=== PATIENT | male | born 1945 | race African-American/Black ===

== ENCOUNTER 2017-05-29 13:08 | Inpatient (IN) | payer MEDICARE, MEDICAID ==
[~2017-05-29] VITALS: Ht 172.7 cm; Wt 85.7 kg
--- NOTE | 2017-05-29 13:10 | NUR ---
AAOX3, BIB PRIVATE EMT FROM [facility] FOR MEDICAL CLEARANCE PRIOR TO GPS ADMISSION FOR REFUSING CARE/COMBATIVE OR AGRESSIVE TOWARDS STAFF. RR IS EVEN AND UNLABORED WITH NAD NOTED. SKIN IS WARM AND DRY. AWAITING MD FOR EVAL.
[2017-05-29] MEDS ORDERED: RISP0.253 PO ×2 (13:32)
[2017-05-29] MEDS ORDERED: DONE5TAB34 PO (13:32)
[2017-05-29] MEDS ORDERED: DORZ10DR8 EACHEYE (13:32)
[2017-05-29] MEDS ORDERED: POLY15DR40 LEFTEYE (13:32)
[2017-05-29] MEDS ORDERED: BRIM5DRO11 LEFTEYE (13:32)
[2017-05-29] MEDS ORDERED: ACET-868 PO (13:32)
[2017-05-29] MEDS ORDERED: LATA2.5D7 EACHEYE (13:32)
--- NOTE | 2017-05-29 13:41 | NUR ---
URINE OBTAINED SENT TO THE LAB.
[2017-05-29 13:47] LABS: APPEARANCE,URINE Clear (CLEAR); BILIRUBIN,URINE Negative (NEGATIVE); BLOOD, URINE Small Ery/uL (NEGATIVE); COLOR,URINE Yellow (YELLOW); KETONES,URINE Negative (NEGATIVE); LEUKOCYTE ESTERASE ,URINE Trace (NEGATIVE); NITRITE, URINE Negative (NEGATIVE); PH,URINE 6.5 (5.0-8.0); PROTEIN,URINE Negative (NEGATIVE); UGLUCOSE Negative (NEGATIVE)
[2017-05-29 13:52] LABS: BASOPHILS % (AUTO) 0.5 % (0.0-2.0); EOSINOPHILS # (AUTO) 0.1 /CMM (0.0-0.7); EOSINOPHILS % (AUTO) 1.9 % (0.0-6.0); HEMATOCRIT 43 % (39-51); HEMOGLOBIN 14.3 g/dL (13.5-17.5); LYMPHOCYTES # (AUTO) 1.4 /CMM (0.8-4.8); LYMPHOCYTES % (AUTO) 18.3 % (20.0-44.0); MEAN CORPUSCULAR HEMOGLOBIN 31 PG (26.0-33.0); MEAN CORPUSCULAR HGB CONC 34 g/dl (31.0-36.0); MEAN CORPUSCULAR VOLUME 92 fL (80-96); MONOCYTES # (AUTO) 0.5 /CMM (0.1-1.30); MONOCYTES % (AUTO) 6.4 % (2.0-12.0); NEUTROPHILS # (AUTO) 5.7 /CMM (1.8-8.9); NEUTROPHILS % (AUTO) 72.9 % (43.0-81.0); PLATELET COUNT (AUTO) 267 /CMM (150-450); RDW COEFFICIENT OF VARIATION 13.4 (11.5-15.0); RED BLOOD CELL COUNT(AUTO) 4.61 MIL/uL (4.5-6.0); WHITE BLOOD COUNT (AUTO) 7.7 K/uL (4.3-11.0)
[2017-05-29 13:55] LABS: BACTERIA,URINE Rare /HPF (None Seen); RBC,URINE 0-2 /HPF (0-2); SQUAMOUS EPITHELIAL CELL,UR Rare /HPF (None Seen); WBC,URINE 0-2 /HPF (0-3)
[2017-05-29 13:59] LABS: CALCIUM, SERUM 8.8 mg/dL (8.5-10.1); CARBON DIOXIDE 29 mmol/L (21-32); CHLORIDE 102 mmol/L (98-107); GLUCOSE 138 mg/dL (74-106); SODIUM SERUM 136 mmol/L (136-145); UREA NITROGEN, BLOOD 10 mg/dL (7-18)
[2017-05-29 14:05] LABS: ALANINE AMINOTRANSFERASE 38 U/L (12-78); ALBUMIN 3.5 g/dL (3.4-5.0); ALKALINE PHOSPHATASE 147 U/L (46-116); ASPARTATE AMINOTRANSFERASE 26 U/L (15-37); BILIRUBIN,DIRECT 0.1 mg/dL (0.0-0.2); BILIRUBIN,TOTAL 0.3 mg/dL (0.2-1.0)
--- NOTE | 2017-05-29 14:23 | NUR ---
REPORT GIVEN TO LINDY DELGADO FOR DONALD GPS 211
[2017-05-29] MEDS ORDERED: ACETAMINOPHEN 325 MG TABLET PO PRN ×2 (15:00→16:00)
[2017-05-29 16:00] VITALS: BP 130/60
[2017-05-29] MEDS ORDERED: LORAZEPAM 0.5 MG TABLET PO PRN (16:00)
[2017-05-29] MEDS ORDERED: MAGNESIUM HYDROXIDE 30 ML UDC PO PRN (16:00)
[2017-05-29] MEDS ORDERED: MAG HYDROX/AL HYDROX/SIMETH 30 ML UDC PO PRN (16:00)
[2017-05-29] MEDS: POLYVINYL ALCOHOL 15 ML BOTTLE LEFTEYE SCH (17:41)
--- NOTE | 2017-05-29 18:25 | NUR ---
GPS RN ADMITTING NOTES: ADMITTED PATIENT FROM THE ED AT 1600. PATIENT IS ON 51/50 HOLD FOR DTO AND GD. PATIENT'S BELONGINGS CHECKED FOR CONTRABAND. ON [id number] ASSESSMENT PATIENT IS ALERT AND ORIENTED TO SELF, YEAR, AND PLACE, COOPERATIVE WITH ASSESSMENT, HOWEVER, UNABLE TO SIGN A PAPERWORK. PATIENT HAS A HX OF GLAUCOMA AND CATARACT(R EYE BLINDNESS, AND LEFT EYE POOR VISION). ADMITTING ORDERS RECEIVED FROM DR. LOPEZ. CONTINUE TO MONITOR THE PATIENT.
[2017-05-29] MEDS: DORZOLAMIDE OPTH 2% 10 ML BOTTLE LEFTEYE SCH (18:48)
[2017-05-29] MEDS: BRIMONIDINE TARTRATE OPHT SOLN 5 ML BOTTLE LEFTEYE SCH (18:48)
--- NOTE | 2017-05-29 19:29 | NUR ---
GPS/RN NOTE: PATIENT AWAKE, LEFT EYE CAN SEE, RIGHT EYE IS BLIND. HAS 1:1 SITTER FOR SAFETY. NO ACUTE DISTRESS NOTED.
[2017-05-29 20:00] VITALS: BP 142/86
[2017-05-29] MEDS: DONEPEZIL 5 MG TABLET PO SCH (21:28)
[2017-05-29] MEDS: LATANOPROST EYE DROP 0.005% 2.5 ML BOTTLE LEFTEYE SCH (21:30)
[2017-05-30] MEDS: BRIMONIDINE TARTRATE OPHT SOLN 5 ML BOTTLE LEFTEYE SCH ×3 (02:30→16:38)
--- NOTE | 2017-05-30 03:39 | NUR ---
GPS/RN NOTE: PATIENT ASLEEP, EYE DROP NOT ADMINISTERED.
[2017-05-30 06:46] LABS: ALANINE AMINOTRANSFERASE 37 U/L (12-78); ALBUMIN 3.5 g/dL (3.4-5.0); ALKALINE PHOSPHATASE 150 U/L (46-116); ASPARTATE AMINOTRANSFERASE 23 U/L (15-37); BILIRUBIN,TOTAL 0.4 mg/dL (0.2-1.0); CALCIUM, SERUM 8.9 mg/dL (8.5-10.1); CARBON DIOXIDE 26 mmol/L (21-32); CHLORIDE 106 mmol/L (98-107); CREATININE 0.8 mg/dL (0.6-1.3); GLUCOSE 90 mg/dL (74-106); POTASSIUM 4.2 mmol/L (3.5-5.1); SODIUM SERUM 140 mmol/L (136-145); TOTAL PROTEIN, SERUM 7.9 g/dL (6.4-8.2); UREA NITROGEN, BLOOD 9 mg/dL (7-18)
[2017-05-30 06:55] LABS: CHOLESTEROL 189 mg/dL (<200); HDL CHOLESTEROL 39 mg/dL (40-60); LDL 137 mg/dL (0-99); TRIGLYCERIDES 94 mg/dL (30-150)
[2017-05-30 08:15] VITALS: BP 146/83
[2017-05-30] MEDS: DORZOLAMIDE OPTH 2% 10 ML BOTTLE LEFTEYE SCH ×3 (08:54→16:39)
[2017-05-30] MEDS: POLYVINYL ALCOHOL 15 ML BOTTLE LEFTEYE SCH ×2 (08:54→16:39)
[2017-05-30] MEDS: NEOMY SULF/BACITRAC ZN/POLY 15 GM TUBE TP SCH (15:07)
--- NOTE | 2017-05-30 15:56 | NUR ---
Initial Discharge Note: Patient resides at [facility] [phone]) [address] [place] [address]. SW will follow-up with the facility to confirm that patient will be able to return upon discharge. cooler room worker will help form a safe and proper discharge.
[2017-05-30 16:00] VITALS: BP 130/74
[2017-05-30] MEDS: risperiDONE 0.25 MG TABLET PO SCH (16:38)
[2017-05-30 20:00] VITALS: BP 133/79
[2017-05-30] MEDS: LATANOPROST EYE DROP 0.005% 2.5 ML BOTTLE LEFTEYE SCH (21:28)
[2017-05-30] MEDS: risperiDONE 1 MG TABLET PO SCH (21:29)
[2017-05-30] MEDS: DONEPEZIL 5 MG TABLET PO SCH (21:29)
[2017-05-31] MEDS: BRIMONIDINE TARTRATE OPHT SOLN 5 ML BOTTLE LEFTEYE SCH ×3 (02:45→18:47)
[2017-05-31 08:00] VITALS: BP 121/71
[2017-05-31] MEDS: risperiDONE 0.25 MG TABLET PO SCH ×2 (08:33→16:14)
[2017-05-31] MEDS: NEOMY SULF/BACITRAC ZN/POLY 15 GM TUBE TP SCH (08:33)
[2017-05-31] MEDS: DORZOLAMIDE OPTH 2% 10 ML BOTTLE LEFTEYE SCH ×3 (08:34→16:14)
[2017-05-31] MEDS: POLYVINYL ALCOHOL 15 ML BOTTLE LEFTEYE SCH ×2 (08:34→16:14)
[2017-05-31 15:55] VITALS: BP 125/75
[2017-05-31 20:00] VITALS: BP 123/76
[2017-05-31] MEDS: DONEPEZIL 5 MG TABLET PO SCH (22:06)
[2017-05-31] MEDS: LATANOPROST EYE DROP 0.005% 2.5 ML BOTTLE LEFTEYE SCH (22:07)
[2017-05-31] MEDS: risperiDONE 1 MG TABLET PO SCH (22:07)
[2017-06-01] MEDS: BRIMONIDINE TARTRATE OPHT SOLN 5 ML BOTTLE LEFTEYE SCH ×3 (03:14→19:15)
[2017-06-01 08:00] VITALS: BP 117/73
[2017-06-01] MEDS: risperiDONE 0.25 MG TABLET PO SCH ×2 (08:27→16:27)
[2017-06-01] MEDS: DORZOLAMIDE OPTH 2% 10 ML BOTTLE LEFTEYE SCH ×3 (08:28→16:28)
[2017-06-01] MEDS: NEOMY SULF/BACITRAC ZN/POLY 15 GM TUBE TP SCH (08:28)
[2017-06-01] MEDS: POLYVINYL ALCOHOL 15 ML BOTTLE LEFTEYE SCH ×2 (08:28→16:27)
[2017-06-01] MEDS: VITAMINS A AND D 56.7 GM TUBE TP PRN (08:29)
[2017-06-01 16:00] VITALS: BP 111/69
--- NOTE | 2017-06-01 20:08 | NUR ---
GPS RN NOTE, PATIENT HAS A COMPLAINT OF A HEAD ACHE AT 3 OUT 10 ON THE PAIN SCALE AND IS REQUESTING TYLENOL AT THIS TIME. PATIENT VITAL SIGNS ARE STABLE. GAVE TYLENOL 650MG PO Q6HR PRN ORDERED. WILL REASSESS PAIN AND I WILL CONTINUE TO MONITOR THIS PATIENT.
[2017-06-01 20:09] VITALS: BP 122/74
[2017-06-01] MEDS: risperiDONE 1 MG TABLET PO SCH (21:44)
[2017-06-01] MEDS: DONEPEZIL 5 MG TABLET PO SCH (21:44)
[2017-06-01] MEDS: LATANOPROST EYE DROP 0.005% 2.5 ML BOTTLE LEFTEYE SCH (21:45)
[2017-06-02] MEDS: BRIMONIDINE TARTRATE OPHT SOLN 5 ML BOTTLE LEFTEYE SCH ×3 (02:28→19:02)
[2017-06-02 07:44] VITALS: BP 114/71
[2017-06-02] MEDS: risperiDONE 0.25 MG TABLET PO SCH ×2 (08:43→17:42)
[2017-06-02] MEDS: POLYVINYL ALCOHOL 15 ML BOTTLE LEFTEYE SCH ×2 (08:43→18:03)
[2017-06-02] MEDS: NEOMY SULF/BACITRAC ZN/POLY 15 GM TUBE TP SCH (08:44)
[2017-06-02] MEDS: DORZOLAMIDE OPTH 2% 10 ML BOTTLE LEFTEYE SCH ×3 (08:44→17:43)
--- NOTE | 2017-06-02 14:48 | NUR ---
recreation worker spoke to Mariya from [facility] ([phone]) [address] [place] [address], who confirmed that patient can return to the facility upon discharge. recreation worker will follow-up.
[2017-06-02 15:40] VITALS: BP 118/74
[2017-06-02 19:31] VITALS: BP 119/73
[2017-06-02] MEDS: risperiDONE 1 MG TABLET PO SCH (21:32)
[2017-06-02] MEDS: DONEPEZIL 5 MG TABLET PO SCH (21:32)
[2017-06-02] MEDS: LATANOPROST EYE DROP 0.005% 2.5 ML BOTTLE LEFTEYE SCH (21:34)
[2017-06-03] MEDS: BRIMONIDINE TARTRATE OPHT SOLN 5 ML BOTTLE LEFTEYE SCH ×3 (02:46→18:04)
[2017-06-03] MEDS: risperiDONE 0.25 MG TABLET PO SCH ×2 (07:57→16:17)
[2017-06-03] MEDS: POLYVINYL ALCOHOL 15 ML BOTTLE LEFTEYE SCH ×2 (07:58→16:25)
[2017-06-03] MEDS: DORZOLAMIDE OPTH 2% 10 ML BOTTLE LEFTEYE SCH ×3 (07:58→16:25)
[2017-06-03] MEDS: NEOMY SULF/BACITRAC ZN/POLY 15 GM TUBE TP SCH (07:58)
[2017-06-03 08:00] VITALS: BP 111/75
[2017-06-03 16:00] VITALS: BP 134/80
[2017-06-03 19:59] VITALS: BP 114/74
[2017-06-03] MEDS: risperiDONE 1 MG TABLET PO SCH (21:12)
[2017-06-03] MEDS: DONEPEZIL 5 MG TABLET PO SCH (21:12)
[2017-06-03] MEDS: TEMAZEPAM 7.5 MG CAPSULE PO PRN (21:13)
[2017-06-03] MEDS: LATANOPROST EYE DROP 0.005% 2.5 ML BOTTLE LEFTEYE SCH (21:16)
[2017-06-04] MEDS: BRIMONIDINE TARTRATE OPHT SOLN 5 ML BOTTLE LEFTEYE SCH ×3 (02:00→18:53)
[2017-06-04 08:00] VITALS: BP 133/72
[2017-06-04] MEDS: risperiDONE 0.25 MG TABLET PO SCH ×2 (08:02→17:12)
[2017-06-04] MEDS: VITAMINS A AND D 56.7 GM TUBE TP PRN (08:06)
[2017-06-04] MEDS: POLYVINYL ALCOHOL 15 ML BOTTLE LEFTEYE SCH ×2 (08:07→17:09)
[2017-06-04] MEDS: DORZOLAMIDE OPTH 2% 10 ML BOTTLE LEFTEYE SCH ×3 (08:07→17:09)
[2017-06-04] MEDS: NEOMY SULF/BACITRAC ZN/POLY 15 GM TUBE TP SCH (08:07)
[2017-06-04] MEDS: LATANOPROST EYE DROP 0.005% 2.5 ML BOTTLE LEFTEYE SCH (17:09)
[2017-06-04 20:06] VITALS: BP 123/78
[2017-06-04] MEDS: DONEPEZIL 5 MG TABLET PO SCH (21:41)
[2017-06-04] MEDS: risperiDONE 1 MG TABLET PO SCH (21:41)
[2017-06-04] MEDS: TEMAZEPAM 7.5 MG CAPSULE PO PRN (21:42)
[2017-06-05] MEDS: BRIMONIDINE TARTRATE OPHT SOLN 5 ML BOTTLE LEFTEYE SCH ×3 (02:30→17:49)
[2017-06-05 08:00] VITALS: BP_SYST 128; BP_SYST 133; BP_DIAS 72; BP_DIAS 76
[2017-06-05] MEDS: risperiDONE 0.25 MG TABLET PO SCH ×2 (08:54→16:39)
[2017-06-05] MEDS: POLYVINYL ALCOHOL 15 ML BOTTLE LEFTEYE SCH ×2 (08:56→16:40)
[2017-06-05] MEDS: NEOMY SULF/BACITRAC ZN/POLY 15 GM TUBE TP SCH (08:56)
[2017-06-05] MEDS: DORZOLAMIDE OPTH 2% 10 ML BOTTLE LEFTEYE SCH ×3 (08:56→16:39)
[2017-06-05 13:00] VITALS: BP 133/72
[2017-06-05 16:15] VITALS: BP 127/79
[2017-06-05 18:12] VITALS: BP 133/72
[2017-06-05 20:00] VITALS: BP 141/87
[2017-06-05] MEDS: LATANOPROST EYE DROP 0.005% 2.5 ML BOTTLE LEFTEYE SCH (22:05)
[2017-06-05] MEDS: risperiDONE 1 MG TABLET PO SCH (22:06)
[2017-06-05] MEDS: DONEPEZIL 5 MG TABLET PO SCH (22:06)
[2017-06-05] MEDS: TEMAZEPAM 7.5 MG CAPSULE PO PRN (22:14)
[2017-06-06] MEDS: BRIMONIDINE TARTRATE OPHT SOLN 5 ML BOTTLE LEFTEYE SCH ×2 (02:30→10:40)
[2017-06-06 08:00] VITALS: BP 135/82
[2017-06-06] MEDS: NEOMY SULF/BACITRAC ZN/POLY 15 GM TUBE TP SCH (08:49)
[2017-06-06] MEDS: risperiDONE 0.25 MG TABLET PO SCH (08:49)
[2017-06-06] MEDS: POLYVINYL ALCOHOL 15 ML BOTTLE LEFTEYE SCH (08:50)
[2017-06-06] MEDS: DORZOLAMIDE OPTH 2% 10 ML BOTTLE LEFTEYE SCH ×2 (08:50→12:31)
--- NOTE | 2017-06-06 10:39 | NUR ---
Discharge Note: Patient will be discharged to [facility] ([phone]) [address] [place] [address]. Patient does not have any family to notify. Patient's mood and affect are appropriate. Patient denies suicidal and homicidal ideations. Patient will follow-up with Dr. Jensen ([phone]) at the facility. Facilitated info to IDT team who are in agreement with discharge arrangement. The multidisciplinary exitcare form was done, printed, signed, and given to the patient.
--- NOTE | 2017-06-06 14:50 | NUR ---
SUZY-NOTES PATIENT DISCHARGE TO [facility] TODAY. DR. LOPEZ AND DR. CHE MADE AWARE OF PATIENT DISCHARGE AND AGREES WITH ORDERS. REPORT WAS GIVEN TO DONNIE( ICING COATER). PATIENT DID NOT VERBALIZE SI/HI,DENIES VISUAL/AUDITORY HALLUCINATIONS AT THE TIME OF DISCHARGE. PATIENT HAS NO FAMILY TO NOTIFY PER RECORD AND SW . PATIENT LEFT THE UNIT IN STABLE CONDITION WITH ALL HIS BELONGINGS. CHIEF LOAD DISPATCHER BY AMBULANCE VIA GURNEY WITH TWO STAFF ASSIST. Addendum: 06/06/17 at 1634 by AURELIO KERR LVN CORRECTION ON MY ABOVE NOTES. ( SENIOR HEALTH EDUCATOR) DR. CHILDERS MADE AWARE NOT DR. CHE.
== END 2017-06-06 14:50 | DRG 885 ==
LOC: ER 13:10 → GPS 14:12
PROVIDERS: ADMIT Psychiatry & Neurology Psychosomatic Medicine; ATTEND Internal Medicine
DX: F20.9 Schizophrenia, unspecified (principal); F03.90 Unspecified dementia, unspecified severity, without behavioral disturbance, psychotic disturbance, mood disturbance, and anxiety; S21.109A Unspecified open wound of unspecified front wall of thorax without penetration into thoracic cavity, initial encounter; F32.9 Major depressive disorder, single episode, unspecified; F41.9 Anxiety disorder, unspecified; H40.9 Unspecified glaucoma; Z73.6 Limitation of activities due to disability; L85.3 Xerosis cutis; L60.3 Nail dystrophy; X58.XXXA Exposure to other specified factors, initial encounter; Y93.9 Activity, unspecified; Y92.129 Unspecified place in nursing home as the place of occurrence of the external cause; L08.9 Local infection of the skin and subcutaneous tissue, unspecified; F29 Unspecified psychosis not due to a substance or known physiological condition
CPT/HCPCS: 36415; 80048-TC; 80053-TC; 80061-TC; 80076-TC; 80305; 81000-TC; 85025-TC; 87081-TC; A4606; Z7610

== ENCOUNTER 2017-08-05 11:39 | Inpatient (IN) | payer MEDICARE, MEDICAID ==
[~2017-08-05] VITALS: Ht 175.3 cm; Wt 83.9 kg
[~2017-08-05 11:39] MED LIST: ACET-868 PO; BRIM5DRO11 LEFTEYE; DONE5TAB34 PO; DORZ10DR8 EACHEYE; LATA2.5D7 EACHEYE; POLY15DR40 LEFTEYE; RISP0.253 PO
--- NOTE | 2017-08-05 11:45 | NUR ---
TRISHA FROM [facility] FOR WOUND EVAL TO MIDSTERNAL CHEST. WOUND CRUSTED AND DRAINING. PATIENT A/OX 4. BREATHING EVEN AND UNLABORED. NO SOB. VITALS STABLE. SAFETY AND COMFORT MEASURES IN PLACE. AWAITING MD ORDERS.
[2017-08-05] MEDS ORDERED: CEPHALEXIN MONOHYDRATE 500 MG CAPSULE PO ONE ×2 (12:52→13:00)
--- NOTE | 2017-08-05 13:01 | NUR ---
CALLED [facility] FOR BLS TRANSPORT. SPOKE WITH FRANCHESCA. ETA 20 MINUTES. TRIP #[id number]
--- NOTE | 2017-08-05 13:05 | NUR ---
CALLED [facility] TO CANCEL TRANSPORTATION, PATIENT WILL BE ADMITTED.
[2017-08-05 13:49] LABS: BASOPHILS % (AUTO) 0.6 % (0.0-2.0); EOSINOPHILS # (AUTO) 0.2 /CMM (0.0-0.7); EOSINOPHILS % (AUTO) 2.3 % (0.0-6.0); HEMATOCRIT 45 % (39-51); HEMOGLOBIN 15.1 g/dL (13.5-17.5); LYMPHOCYTES # (AUTO) 1.9 /CMM (0.8-4.8); LYMPHOCYTES % (AUTO) 22.9 % (20.0-44.0); MEAN CORPUSCULAR HEMOGLOBIN 31 PG (26.0-33.0); MEAN CORPUSCULAR HGB CONC 34 g/dl (31.0-36.0); MEAN CORPUSCULAR VOLUME 93 fL (80-96); MONOCYTES # (AUTO) 0.8 /CMM (0.1-1.30); MONOCYTES % (AUTO) 9.7 % (2.0-12.0); NEUTROPHILS # (AUTO) 5.4 /CMM (1.8-8.9); NEUTROPHILS % (AUTO) 64.5 % (43.0-81.0); PLATELET COUNT (AUTO) 234 /CMM (150-450); RDW COEFFICIENT OF VARIATION 13.4 (11.5-15.0); RED BLOOD CELL COUNT(AUTO) 4.86 MIL/uL (4.5-6.0); WHITE BLOOD COUNT (AUTO) 8.3 K/uL (4.3-11.0)
[2017-08-05 14:05] LABS: CALCIUM, SERUM 8.9 mg/dL (8.5-10.1); CARBON DIOXIDE 24 mmol/L (21-32); CHLORIDE 103 mmol/L (98-107); CREATININE 0.8 mg/dL (0.6-1.3); GLUCOSE 107 mg/dL (74-106); POTASSIUM 3.8 mmol/L (3.5-5.1); SODIUM SERUM 136 mmol/L (136-145); UREA NITROGEN, BLOOD 12 mg/dL (7-18)
[2017-08-05 14:11] LABS: ALANINE AMINOTRANSFERASE 30 U/L (12-78); ALBUMIN 3.6 g/dL (3.4-5.0); ALKALINE PHOSPHATASE 154 U/L (46-116); ASPARTATE AMINOTRANSFERASE 17 U/L (15-37); BILIRUBIN,DIRECT 0.1 mg/dL (0.0-0.2); BILIRUBIN,TOTAL 0.3 mg/dL (0.2-1.0)
--- NOTE | 2017-08-05 14:26 | NUR ---
urine obtained via straight cath per johanna BABIN and sent to lab.
[2017-08-05] MEDS ORDERED: ACETAMINOPHEN 325 MG TABLET PO PRN ×2 (14:30)
[2017-08-05] MEDS ORDERED: HYDROCODONE/APAP 5/325MG 1 EACH TABLET PO PRN (14:30)
[2017-08-05] MEDS ORDERED: ZOLPIDEM TARTRATE 5 MG TABLET PO PRN (14:30)
[2017-08-05] MEDS ORDERED: MAG HYDROX/AL HYDROX/SIMETH 30 ML UDC PO PRN (14:30)
[2017-08-05] MEDS ORDERED: ONDANSETRON HCL/PF 4 MG/2 ML VIAL IVP PRN (14:30)
[2017-08-05] MEDS ORDERED: MAGNESIUM HYDROXIDE 30 ML UDC PO PRN (14:30)
[2017-08-05] MEDS ORDERED: Z GUARD REMEDY 2 OZ OINT TP PRN (14:30)
[2017-08-05 14:43] LABS: APPEARANCE,URINE Clear (CLEAR); BILIRUBIN,URINE Negative (NEGATIVE); BLOOD, URINE Large Ery/uL (NEGATIVE); COLOR,URINE Yellow (YELLOW); KETONES,URINE Negative (NEGATIVE); LEUKOCYTE ESTERASE ,URINE Negative (NEGATIVE); NITRITE, URINE Negative (NEGATIVE); PH,URINE 5.5 (5.0-8.0); PROTEIN,URINE Negative (NEGATIVE); UGLUCOSE Negative (NEGATIVE)
--- NOTE | 2017-08-05 14:47 | NUR ---
patient assigned to [facility] [id number]
[2017-08-05 14:48] LABS: BACTERIA,URINE Rare /HPF (None Seen); SQUAMOUS EPITHELIAL CELL,UR Rare /HPF (None Seen); WBC,URINE 0-2 /HPF (0-3)
--- NOTE | 2017-08-05 15:00 | NUR ---
REPORT GIVEN TO LINDY NICHOLAS FOR DONALD UPON ADMISSION.
--- NOTE | 2017-08-05 15:05 | NUR ---
PATIENT TRANSPORTED TO 306 VIA STRETCHER. RNYU TO PROVIDE DONALD.
--- NOTE | 2017-08-05 15:10 | NUR ---
RN NOTES PT IS LAYING DOWN IN BED, RESTING COMFORTABLY. PT ON RA, RESPIRATIONS ARE EVEN AND UNLABORED. PT IS ALERT AND ORIENTED, DENIES ANY PAIN AT THIS TIME. SAFETY MEASURES ARE IN PLACE, CALL LIGHT IS IN PLACE. WILL CONTINUE TO MONITOR.
[2017-08-05 16:00] VITALS: BP 110/77
--- NOTE | 2017-08-05 17:00 | NUR ---
RN NOTES PT BECAME AGITATED WHEN INSERTING THE IV. PT STARTED SHOUTING AT DORINA RN, AND WAS THREATENING TO HIT HIM. IV WAS ABLE TO BE INSERTED AND PT CALMED DOWN.
[2017-08-05] MEDS: CLINDAMYCIN 600 MG in IV D5W 50 ML IV SCH ×2 (17:25→23:59)
[2017-08-05] MEDS ORDERED: CLINDAMYCIN 300 MG in IV D5W 50 ML IV SCH (18:00)
[2017-08-05] MEDS ORDERED: CLINDAMYCIN IV RTU IN D5W 600 MG/50 ML PIGGYBACK IV SCH (18:00)
--- NOTE | 2017-08-05 19:00 | NUR ---
RN NOTES PT IS RESTING IN BED COMFORTABLY. PT ON RA, RESPIRATIONS ARE EVEN AND UNLABORED. IV ON R HAND INTACT AND PATENT, RUNNING TKO. THE EYE DROPS DUE FOR 1700 WERE NOT GIVEN, THEY WERE NOT BROUGHT ONTO THE FLOOR. SAFETY MEASURES ARE IN PLACE, CALL LIGHT IS IN REACH. WILL ENDORSE TO WAX PUMPER RN FOR CONTINUITY OF CARE.
--- NOTE | 2017-08-05 19:15 | NUR ---
RN OPEN NOTES RECEIVED PATIENT AWAKE IN BED. A/O X2-3. NO SIGNS OF DISTRESS OR DISCOMFORT. BREATHING EVEN AND UNLABORED. IV ACCESS IN R HAND, PATENT AND INTACT, NO SIGNS OF REDNESS OR INFILTRATION. BED IN LOW LOCKED POSITION WITH SIDE RAILS X3. CALL LIGHT WITHIN REACH. WILL CONTINUE TO MONITOR.
[2017-08-05 20:00] VITALS: BP 119/75
[2017-08-05] MEDS: DONEPEZIL 5 MG TABLET PO SCH (22:15)
[2017-08-05] MEDS: risperiDONE 0.25 MG TABLET PO SCH (22:16)
[2017-08-05] MEDS: LATANOPROST EYE DROP 0.005% 2.5 ML BOTTLE EACHEYE SCH (22:16)
[2017-08-06] MEDS: CLINDAMYCIN 600 MG in IV D5W 50 ML IV SCH ×3 (05:51→18:36)
--- NOTE | 2017-08-06 06:47 | NUR ---
RN CLOSING NOTES PATIENT AWAKE IN BED. A/O X2-3. NO SIGNS OF DISTRESS OR DISCOMFORT. BREATHING EVEN AND UNLABORED. IV ACCESS IN R HAND, PATENT AND INTACT, NO SIGNS OF REDNESS OR INFILTRATION. ALL NEEDS MET. NO SIGNIFICANT CHANGES THROUGH THE NIGHT. REPOSITIONED Q2H PRN. BED IN LOW LOCKED POSITION WITH SIDE RAILS X3. CALL LIGHT WITHIN REACH. WILL ENDORSE TO AM SHIFT FOR DONALD.
[2017-08-06 07:05] LABS: BASOPHILS % (AUTO) 0.4 % (0.0-2.0); EOSINOPHILS # (AUTO) 0.2 /CMM (0.0-0.7); EOSINOPHILS % (AUTO) 1.9 % (0.0-6.0); HEMATOCRIT 45 % (39-51); HEMOGLOBIN 14.9 g/dL (13.5-17.5); LYMPHOCYTES # (AUTO) 1.9 /CMM (0.8-4.8); LYMPHOCYTES % (AUTO) 24.6 % (20.0-44.0); MEAN CORPUSCULAR HEMOGLOBIN 31 PG (26.0-33.0); MEAN CORPUSCULAR HGB CONC 33 g/dl (31.0-36.0); MEAN CORPUSCULAR VOLUME 93 fL (80-96); MONOCYTES # (AUTO) 0.8 /CMM (0.1-1.30); MONOCYTES % (AUTO) 10.2 % (2.0-12.0); NEUTROPHILS # (AUTO) 4.9 /CMM (1.8-8.9); NEUTROPHILS % (AUTO) 62.9 % (43.0-81.0); PLATELET COUNT (AUTO) 255 /CMM (150-450); RDW COEFFICIENT OF VARIATION 14.1 (11.5-15.0); WHITE BLOOD COUNT (AUTO) 7.8 K/uL (4.3-11.0)
[2017-08-06 07:29] LABS: CALCIUM, SERUM 9.2 mg/dL (8.5-10.1); CARBON DIOXIDE 27 mmol/L (21-32); CHLORIDE 103 mmol/L (98-107); CREATININE 0.9 mg/dL (0.6-1.3); GLUCOSE 91 mg/dL (74-106); PHOSPHORUS 3.4 mg/dL (2.5-4.9); POTASSIUM 3.9 mmol/L (3.5-5.1); SODIUM SERUM 139 mmol/L (136-145); UREA NITROGEN, BLOOD 10 mg/dL (7-18)
[2017-08-06 07:30] LABS: CHOLESTEROL 214 mg/dL (<200); HDL CHOLESTEROL 41 mg/dL (40-60); LDL 152 mg/dL (0-99); TRIGLYCERIDES 64 mg/dL (30-150)
--- NOTE | 2017-08-06 07:30 | NUR ---
RECEIVED PT. IN AM ALERT AND ORIENTED X3,FORGETFUL AT TIMES. REPEATS SELF FREQ.
[2017-08-06 08:00] VITALS: BP 130/85
--- NOTE | 2017-08-06 08:38 | NUR ---
WOUND CARE CONSULT: PT PRESENTS WITH CHEST WOUND WHICH HAS SMALL AMOUNT OF DRAINAGE ( REDDISH), NO ODOR, PRESENT ON ADMISSION. PT TO BE FOLLOWED BY SURGICAL TEAM. SKIN PROTECTION MEASURES DISCUSSED WITH NURSING STAFF. WILL SEE PRN. AN IN AGREEMENT WITH PLAN OF CARE. Addendum: 08/06/17 at 0839 by HAYLEY SCHROEDER WNDNU Amended: Links added.
[2017-08-06] MEDS: DORZOLAMIDE OPTH 2% 10 ML BOTTLE EACHEYE SCH ×3 (09:00→17:52)
[2017-08-06] MEDS ORDERED: MINERAL OIL/PETROLATUM,WHITE 120 GM JAR TP PRN (09:00)
[2017-08-06] MEDS: BRIMONIDINE TARTRATE OPHT SOLN 5 ML BOTTLE LEFTEYE SCH (09:38)
[2017-08-06] MEDS: risperiDONE 0.25 MG TABLET PO SCH ×2 (09:38→22:07)
--- NOTE | 2017-08-06 12:30 | NUR ---
iv inadvertently fell out restarted in lt. ac with #20 angio.
--- NOTE | 2017-08-06 13:30 | NUR ---
CALL TO PT,S FACILITY [facility]-SPOKE WITH NURSE-ATTEMPTING TO FIND OUT IF PT. HAS GUARDIAN OR CAREGIVER TO SIGN CONSENTS.INFORMED THAT PT. IS RESPONSIBLE FOR SIGNING OWN PAPERWORK.CONSENT FOR CT SCAN AND SURGICAL PROCEDURE SIGNED BY PT.
--- NOTE | 2017-08-06 14:30 | NUR ---
NPO FOR CAT SCAN WITH CONTRAST.
[2017-08-06 16:00] VITALS: BP 124/74
[2017-08-06] MEDS ORDERED: IV NS 0.9% 250 ML IV ONE (16:50)
[2017-08-06] MEDS ORDERED: IOHEXOL-300 100 ML VIAL IV ONE (16:50)
[2017-08-06] MEDS: CLOTRIMAZOLE 1% 15 GM TUBE TP SCH (17:52)
--- NOTE | 2017-08-06 18:00 | NUR ---
CAT SCAN COMPLETED.
[2017-08-06 18:35] LABS: INR 1.1 (0.87-1.13); PROTHROMBIN TIME 11.4 SECS (9.5-12.7)
--- NOTE | 2017-08-06 19:00 | NUR ---
TO BE NPO AFTER MIDNOC FOR SURG. TOMORROW.
[2017-08-06 20:00] VITALS: BP 128/83
--- NOTE | 2017-08-06 20:00 | NUR ---
MS SUZY NOTES PT SEEN IN BED LYING ON SEMI FOWLERS POSITION RESTING WITH EYES CLOSED, RESPIRATION EVEN AND NON-LABORED, NOT IN ANY ACUTE DISTRESS NOTED. SKIN WARM AND DRY TO TOUCH. AROUSABLE TO TOUCH AND STIMULI. DENIES ANY PAIN. SAFETY PRECAUTION APPLIED . KEPT HIM WARM AND COMFORTABLE AT ALL TIMES. WILL CONTINUE TO MONITOR. PLACE CALL LIGHT AT REACH.
[2017-08-06] MEDS: DONEPEZIL 5 MG TABLET PO SCH (22:06)
[2017-08-06] MEDS: LATANOPROST EYE DROP 0.005% 2.5 ML BOTTLE EACHEYE SCH (22:08)
--- NOTE | 2017-08-06 22:46 | NUR ---
MS SUZY NOTES CALLED X-RAY DEPT FOR FF-UP AFTER I SPOKE TO DR REES REGARDING THE CT OF THE CHEST OF THE PT WITH CONTRAST. FINGER LIFT OPERATOR TOLD ME THAT PT SCHEDULE EARLY IN THE MORNING BEFORE SURGERY.
[2017-08-07] MEDS: CLINDAMYCIN 600 MG in IV D5W 50 ML IV SCH ×5 (00:34→23:53)
--- NOTE | 2017-08-07 02:08 | NUR ---
MS SUZY NOTES' CHECKED PT SLEEPING AT THIS TIME , RESPIRATION EVEN AND NON-LABORED , NOT IN ANY ACUTE DISTRESS NOTED. KEPT HIM WARM AND COMFORTABLE AT ALL TIMES. PLACE CALL LIGHT AT REACH. WILL CONTINUE TO MONITOR. BED ALARM SET FOR SAFETY.
--- NOTE | 2017-08-07 07:30 | NUR ---
MS RN OPENING NOTES RECEIVED PATIENT IN STABLE CONDITION. IN NO APPARENT DISTRESS. PATIENT IS ALERT AND RESTING IN BED. CALL LIGHT IS WITHIN REACH. BEDSIDE RAILS ARE UP X2. BED IS LOCKED AND LOWERED. WILL CONTINUE TO MONITOR.
--- NOTE | 2017-08-07 07:30 | NUR ---
FOREIGN BANKNOTE TELLER/CLOSING NOTES PT AWAKE AND ALERT CALMED AND SMILING WHEN YOU STARTED TALKING TO HIM. STABLE JOSEMANUEL THE NIGHT AND SLEPT WELL. NO ACUTE DISTRESS NOTED. ALL DUE MEDS GIVEN AND ALL NEEDS MET. ENDORSE TO AM NURSE FOR CONTINUITY OF CARE.
[2017-08-07 08:00] VITALS: BP 128/65
[2017-08-07 08:01] LABS: BASOPHILS % (AUTO) 0.4 % (0.0-2.0); EOSINOPHILS # (AUTO) 0.1 /CMM (0.0-0.7); EOSINOPHILS % (AUTO) 1.8 % (0.0-6.0); HEMATOCRIT 45 % (39-51); HEMOGLOBIN 14.8 g/dL (13.5-17.5); LYMPHOCYTES # (AUTO) 1.8 /CMM (0.8-4.8); LYMPHOCYTES % (AUTO) 24.7 % (20.0-44.0); MEAN CORPUSCULAR HEMOGLOBIN 31 PG (26.0-33.0); MEAN CORPUSCULAR HGB CONC 33 g/dl (31.0-36.0); MEAN CORPUSCULAR VOLUME 94 fL (80-96); MONOCYTES # (AUTO) 0.8 /CMM (0.1-1.30); MONOCYTES % (AUTO) 10.8 % (2.0-12.0); NEUTROPHILS # (AUTO) 4.5 /CMM (1.8-8.9); NEUTROPHILS % (AUTO) 62.3 % (43.0-81.0); PLATELET COUNT (AUTO) 264 /CMM (150-450); RDW COEFFICIENT OF VARIATION 14.4 (11.5-15.0); RED BLOOD CELL COUNT(AUTO) 4.83 MIL/uL (4.5-6.0); WHITE BLOOD COUNT (AUTO) 7.2 K/uL (4.3-11.0)
[2017-08-07 08:28] LABS: CALCIUM, SERUM 9.3 mg/dL (8.5-10.1); CARBON DIOXIDE 26 mmol/L (21-32); CHLORIDE 103 mmol/L (98-107); CREATININE 0.9 mg/dL (0.6-1.3); GLUCOSE 88 mg/dL (74-106); POTASSIUM 4.1 mmol/L (3.5-5.1); SODIUM SERUM 139 mmol/L (136-145); UREA NITROGEN, BLOOD 8 mg/dL (7-18)
[2017-08-07] MEDS: risperiDONE 0.25 MG TABLET PO SCH ×2 (09:00→21:18)
[2017-08-07] MEDS: DORZOLAMIDE OPTH 2% 10 ML BOTTLE EACHEYE SCH ×3 (09:43→16:16)
[2017-08-07] MEDS: CLOTRIMAZOLE 1% 15 GM TUBE TP SCH ×2 (09:43→16:16)
[2017-08-07] MEDS: BRIMONIDINE TARTRATE OPHT SOLN 5 ML BOTTLE LEFTEYE SCH (09:43)
--- NOTE | 2017-08-07 11:20 | NUR ---
PATIENT PICKED UP FOR WOUND DEBRIDEMENT. TAKEN TO THE OR.
[2017-08-07] MEDS ORDERED: BUPIVACAINE MPF INJ 0.75% W/EP 30 ML VIAL ONE (12:07)
[2017-08-07] MEDS ORDERED: BACITRACIN 50000 UNITS/VIAL ONE (12:07)
[2017-08-07] MEDS ORDERED: FENTANYL PF 100MCG/2ML AMPUL ONE (12:09)
[2017-08-07] MEDS ORDERED: CLINDAMYCIN 900 MG/6 ML VIAL ONE (12:12)
--- NOTE | 2017-08-07 13:00 | NUR ---
PATIENT CAME BACK FROM WOUND DEBRIDEMENT. RESUMED ON REGULAR DIET.
--- NOTE | 2017-08-07 15:38 | NUR ---
LEFT MESSAGE FOR DR. NEWTON. WILL FOLLOW UP FOR ORDERS Addendum: 08/07/17 at 1539 by LYNDSAY ROGER RN WRONG PATIENT. DISREGARD NOTE
[2017-08-07 16:00] VITALS: BP 125/76
[2017-08-07] MEDS ORDERED: ANESTHESIA TRAY IN PYXIS 1 EA TRAY MC ONE (16:39)
--- NOTE | 2017-08-07 18:42 | NUR ---
PATIENT IS IN STABLE CONDITION. IN NO APPARENT DISTRESS. BEDSIDE RAILS ARE UP X2. BED IS LOCKED AND LOWERED. WILL ENDORSE CARE TO PARACHUTE OFFICER NURSE FOR DONALD.
--- NOTE | 2017-08-07 19:30 | NUR ---
MS RN Initial notes Received pt in bed awake, verbally responsive on room air, no SOB,no apparent distress noted.Denies any pain or discomfort at this time.IV site LAC intact, patent, no s/sx of infiltration noted. Kept clean and comfortable, attended all needs.Call light within reach. Will continue to monitor accordingly
--- NOTE | 2017-08-07 19:42 | NUR ---
MS RN INITIAL NOTES Received pt in bed awake,alert, verbally responsive,on room air,no SOB,no apparent distress noted.Denies any pain or discomfort at this time. IV site LAC intact, patent, no s/sx of infiltration noted. Kept clean and comfortable,attended all needs,call light within reach. Will continue to to monitor accordingly
[2017-08-07 20:03] VITALS: BP 99/68
[2017-08-07 20:06] VITALS: BP 98/68
[2017-08-07] MEDS: LATANOPROST EYE DROP 0.005% 2.5 ML BOTTLE EACHEYE SCH (21:17)
[2017-08-07] MEDS: DONEPEZIL 5 MG TABLET PO SCH (21:17)
[2017-08-08] MEDS: CLINDAMYCIN 600 MG in IV D5W 50 ML IV SCH ×2 (05:15→11:32)
--- NOTE | 2017-08-08 06:22 | NUR ---
MS RN CLOSING NOTES PT IN BED AWAKE,VERBALLY RESPONSIVE, ON ROOM AIR,NO SOB, NO APPARENT DISTRESS NOTED. IV SITE LT AC INTACT, PATENT, NO S/SX OF INFILTRATION NOTED.KEPT CLEAN AND COMFORTABLE,SHANNAN LIGHT WITHIN REACH.REFUSED BLOOD DRAW,OFFERED X3 EXPLAINED BENEFITS,REFUSED.WILL CONTINUE TO MONITOR ACCORDINGLY
[2017-08-08 08:00] VITALS: BP 121/71
--- NOTE | 2017-08-08 08:00 | NUR ---
MS RN OPENING NOTES Received resident in bed, awake in stable condition. HOB elevated. No SOB noted. No sign of apparent distress noted. Denied any pain, no facial grimacing noted. Left AC IV site intact, patent, no s/sx of infiltration noted. Call light placed within easy reach. Bed in low position,locked, side rails x 2 up. Will continue to monitor patient.
[2017-08-08] MEDS: risperiDONE 0.25 MG TABLET PO SCH (08:35)
[2017-08-08] MEDS: DORZOLAMIDE OPTH 2% 10 ML BOTTLE EACHEYE SCH ×2 (08:36→11:36)
[2017-08-08] MEDS: BRIMONIDINE TARTRATE OPHT SOLN 5 ML BOTTLE LEFTEYE SCH (08:36)
[2017-08-08] MEDS: CLOTRIMAZOLE 1% 15 GM TUBE TP SCH (08:37)
[2017-08-08 10:59] LABS: BASOPHILS % (AUTO) 0.5 % (0.0-2.0); EOSINOPHILS # (AUTO) 0.1 /CMM (0.0-0.7); EOSINOPHILS % (AUTO) 1.3 % (0.0-6.0); HEMATOCRIT 43 % (39-51); HEMOGLOBIN 14.2 g/dL (13.5-17.5); LYMPHOCYTES # (AUTO) 1.4 /CMM (0.8-4.8); LYMPHOCYTES % (AUTO) 19.7 % (20.0-44.0); MEAN CORPUSCULAR HEMOGLOBIN 31 PG (26.0-33.0); MEAN CORPUSCULAR HGB CONC 33 g/dl (31.0-36.0); MEAN CORPUSCULAR VOLUME 94 fL (80-96); MONOCYTES # (AUTO) 0.6 /CMM (0.1-1.30); MONOCYTES % (AUTO) 8.7 % (2.0-12.0); NEUTROPHILS # (AUTO) 5.1 /CMM (1.8-8.9); NEUTROPHILS % (AUTO) 69.8 % (43.0-81.0); PLATELET COUNT (AUTO) 239 /CMM (150-450); RDW COEFFICIENT OF VARIATION 14.6 (11.5-15.0); RED BLOOD CELL COUNT(AUTO) 4.58 MIL/uL (4.5-6.0); WHITE BLOOD COUNT (AUTO) 7.3 K/uL (4.3-11.0)
[2017-08-08 11:07] LABS: CALCIUM, SERUM 9.2 mg/dL (8.5-10.1); CARBON DIOXIDE 23 mmol/L (21-32); CHLORIDE 101 mmol/L (98-107); GLUCOSE 186 mg/dL (74-106); POTASSIUM 3.4 mmol/L (3.5-5.1); SODIUM SERUM 134 mmol/L (136-145); UREA NITROGEN, BLOOD 11 mg/dL (7-18)
[2017-08-08] MEDS ORDERED: LORAZEPAM INJ 2 MG/ML VIAL IV ONE (14:30)
--- NOTE | 2017-08-08 15:00 | NUR ---
PT WAS SO AGITATED AND MAD SCREAMING REFUSED TO BE WOKE UP FOR SKIN ASSESSMENT PHOTOS TO BE TAKEN.SCREAMING TO LEAVE HIS ROOM.PT UNABLE TO SIGN ALL THE DISCHARGE PAPERS DUE TO BILATERAL CATARACTS AND BLINDNESS WELL.
[2017-08-08 15:40] VITALS: BP 108/68
--- NOTE | 2017-08-08 15:40 | NUR ---
MS WINDOW CLEANER NOTES Patient discharged in stable condition. Vital sign taken. No SOB noted. No sign of apparent distress noted. Remove IV line on LAC. Picked up via [facility] accompanied by 2 EMT personnel in a rney. Belongings accounted for. Report given to Viridiana Paul.
== END 2017-08-08 15:46 | DRG 581 ==
LOC: ER 11:41 → MED 14:47
PROVIDERS: ADMIT Family Medicine; ATTEND Family Medicine
PROC: 0WB8XZZ Excision of Chest Wall, External Approach (ICD-10-PCS; principal; 2017-08-07 13:15)
DX: L72.0 Epidermal cyst (principal); D69.2 Other nonthrombocytopenic purpura; F03.90 Unspecified dementia, unspecified severity, without behavioral disturbance, psychotic disturbance, mood disturbance, and anxiety; B35.3 Tinea pedis; F31.9 Bipolar disorder, unspecified; H40.9 Unspecified glaucoma; L60.3 Nail dystrophy
CPT/HCPCS: 36415; 71010-TC; 71260-TC; 80048-TC; 80061-TC; 80076-TC; 81000-TC; 83735-TC; 84100-TC; 85025-TC; 85610-TC; 85730-TC; 87081-TC; 88305-TC; A4606; A6402; J2060; J3010; J3490; J7050; J7060; Q9967; Z7610